=== PATIENT | female | born 1950 | race Caucasian/White ===

== ENCOUNTER 2016-12-27 16:53 | Inpatient (IN) | payer MEDICARE ==
[~2016-12-27 16:53] MED LIST: ALLEGRA ALLERG180 MG PO; ATENOLOL50 MG; OGEN0.75 MG; OMEGA 3 1,0001 EACH PO; PHILLIPS' COLO1 EACH PO; SINGULAIR10 MG PO; SUDAFED240 MG; TENORMIN50 M1 PO
[2016-12-27 17:20] LABS: BASO % 0.5 % (0-2); CREATININE 0.69 mg/dl (0.67-1.17); EOS % 2.3 % (0-7); EOSINOPHIL ABSOLUTE COUNT 0.2 tho/cmm (0.0-0.7); GLUCOSE 110 mg/dl (65-120); HCT-HEMATOCRIT 42.8 % (34.0-49.0); HGB-HEMOGLOBIN 14.6 gm/dl (12.0-15.5); IMMATURE GRANULOCYTES ABSOLUTE 0.01 tho/cmm (0-0.03); IMMATURE GRANULOCYTES PERCENT 0.2 % (0-0.3); LYMPH % 29.5 % (20-45); LYMPH ABSOLUTE COUNT 1.9 tho/cmm (0.8-4.5); MCH (MEAN CORPUSCULAR HGB) 29.9 pg (28.0-32.0); MCHC MEAN CORPUSCULAR HGB CONC 34.1 % (32.0-36.0); MCV (MEAN CELL VOLUME) 87.7 fl (82.0-96.0); MEAN PLATELET VOLUME 9.3 cmc (9.4-12.4); MONOCYTE ABSOLUTE COUNT 0.9 tho/cmm (0.0-1.2); NEUTROPHIL ABSOLUTE COUNT 3.5 tho/cmm (1.6-8.0); NEUTROPHIL-AUTOMATED 3.5 tho/cmm (1.6-8.0); NEUTROPHILS % 53.5 % (40-80); PLATELET COUNT 219 tho/cmm (150-450); POTASSIUM 3.7 mmol/L (3.5-5.3); RED BLOOD COUNT 4.88 mil/cmm (4.00-5.20); RED CELL DISTRIBUTION WIDTH 13.6 % (12.4-16.4); SODIUM 132 mmol/L (135-146); WHITE BLOOD COUNT 6.6 tho/cmm (4.0-10.0); eGFR VALUE FOR BLACK >90 mL/Min
[2016-12-27 17:25] LABS: PROTHROMBIN TIME 11.6 SECONDS (9.0-13.6)
[2016-12-27] MEDS ORDERED: VITAMIN D31000 UNI3 PO (17:35)
[2016-12-27] MEDS ORDERED: VITAMIN B COMP1 EAC1 PO (17:36)
[2016-12-27] MEDS ORDERED: SELENIUM200 MC5 PO (17:37)
[2016-12-27 17:39] LABS: ESR-ERYTHROCYTE SED RATE 9 mm/hr (0-30)
[2016-12-27 17:41] LABS: ALB/GLOB RATIO 0.8 (0.8-2.0); ALBUMIN 3.4 g/dl (3.5-5.0); ALKALINE PHOSPHATASE 108 U/L (33-138); ALT/SGPT 68 U/L (12-78); AST/SGOT 54 U/L (10-40); BILIRUBIN,TOTAL 0.3 mg/dl (0-1.5); BLOOD UREA NITROGEN 10 mg/dl (6-24); CALCIUM 8.8 mg/dl (8.5-10.5); CHLORIDE 101 mmol/l (96-110)
[2016-12-27 17:44] LABS: ANION GAP 9 mmol/L (0-20); CARBON DIOXIDE-VENOUS 26 mmol/L (21-33)
[2016-12-27 20:23] LABS: C-REACTIVE PROTEIN 7.2 mg/dl (0-0.9)
[2016-12-28 01:30] LABS: BASO % 0.4 % (0-2); EOS % 1.9 % (0-7); EOSINOPHIL ABSOLUTE COUNT 0.2 tho/cmm (0.0-0.7); HCT-HEMATOCRIT 40.3 % (34.0-49.0); HGB-HEMOGLOBIN 13.4 gm/dl (12.0-15.5); IMMATURE GRANULOCYTES ABSOLUTE 0.02 tho/cmm (0-0.03); IMMATURE GRANULOCYTES PERCENT 0.3 % (0-0.3); LYMPH % 26.1 % (20-45); MCH (MEAN CORPUSCULAR HGB) 29.1 pg (28.0-32.0); MCHC MEAN CORPUSCULAR HGB CONC 33.3 % (32.0-36.0); MCV (MEAN CELL VOLUME) 87.6 fl (82.0-96.0); MEAN PLATELET VOLUME 9.3 cmc (9.4-12.4); MONO % 10.7 % (0-12); MONOCYTE ABSOLUTE COUNT 0.8 tho/cmm (0.0-1.2); NEUTROPHIL ABSOLUTE COUNT 4.8 tho/cmm (1.6-8.0); NEUTROPHIL-AUTOMATED 4.8 tho/cmm (1.6-8.0); NEUTROPHILS % 60.6 % (40-80); PLATELET COUNT 206 tho/cmm (150-450); RED CELL DISTRIBUTION WIDTH 13.7 % (12.4-16.4); WHITE BLOOD COUNT 7.8 tho/cmm (4.0-10.0)
[2016-12-28 01:31] LABS: INR 1.1 INR (0.9-1.1); PROTHROMBIN TIME 12.6 SECONDS (9.0-13.6)
[2016-12-28 01:46] LABS: ALB/GLOB RATIO 0.8 (0.8-2.0); ALBUMIN 3.2 g/dl (3.5-5.0); ALKALINE PHOSPHATASE 100 U/L (33-138); ALT/SGPT 58 U/L (12-78); AST/SGOT 35 U/L (10-40); BILIRUBIN,TOTAL 0.2 mg/dl (0-1.5); BLOOD UREA NITROGEN 8 mg/dl (6-24); CALCIUM 8.2 mg/dl (8.5-10.5); CARBON DIOXIDE-VENOUS 28 mmol/L (22-32); CHOLESTEROL 151 mg/dl (120-200); CREATININE 0.67 mg/dl (0.50-1.10); GLUCOSE 108 mg/dL (70-110); HDL CHOLESTEROL 52 mg/dl (40-60); LDL CHOLESTEROL 74 mg/dl (0-99); MAGNESIUM 1.9 mg/dl (1.8-2.6); TRIGLYCERIDES 127 mg/dl (<149); VLDL 25 mg/dl (0-30); eGFR VALUE FOR BLACK >90 mL/Min
[2016-12-28 01:52] LABS: ANION GAP 9 mmol/L (0-20); CHLORIDE 100 mmol/l (96-110); POTASSIUM 3.7 mmol/L (3.7-5.1); SODIUM 133 mmol/L (135-145)
[2016-12-28 02:06] LABS: ESR-ERYTHROCYTE SED RATE 15 mm/hr (0-30)
[2016-12-28 03:54] LABS: C-REACTIVE PROTEIN 5.7 mg/dl (0-0.9)
[2016-12-29] MEDS ORDERED: DELTASONE20 MG PO (11:38)
[2016-12-29] MEDS ORDERED: LUBRICANT EYE3.5 G3 LEFT EYE (11:40)
[2016-12-29] MEDS ORDERED: VALTREX500 M1 PO (11:40)
[2016-12-29] MEDS ORDERED: LIDOCAINE HCL100 ML SSW (11:43)
== END 2016-12-29 13:07 | DRG 74 ==
LOC: EDMED 16:53 → EMR2 20:22 → 5EB 22:14
PROVIDERS: Emergency Medicine; ADMIT Internal Medicine
DX: G51.0 Bell's palsy (principal); E87.1 Hypo-osmolality and hyponatremia; K90.0 Celiac disease; D32.9 Benign neoplasm of meninges, unspecified; F17.210 Nicotine dependence, cigarettes, uncomplicated; K13.79 Other lesions of oral mucosa; E04.8 Other specified nontoxic goiter; H92.03 Otalgia, bilateral; K86.81 Exocrine pancreatic insufficiency; J02.9 Acute pharyngitis, unspecified; R93.8 Abnormal findings on diagnostic imaging of other specified body structures; R59.9 Enlarged lymph nodes, unspecified; R73.03 Prediabetes; I34.1 Nonrheumatic mitral (valve) prolapse; Z90.49 Acquired absence of other specified parts of digestive tract; Z90.710 Acquired absence of both cervix and uterus; Z88.1 Allergy status to other antibiotic agents; Z88.0 Allergy status to penicillin; Z88.2 Allergy status to sulfonamides; Z88.8 Allergy status to other drugs, medicaments and biological substances; Z91.09 Other allergy status, other than to drugs and biological substances
CPT/HCPCS: A9577; G8978-GP-CH; G8979-GP-CH; G8987-GO-CH; G8988-GO-CH; G8989-GO-CH; J7030; J7512; Q9967